=== PATIENT | female | born 1940 | race Caucasian/White ===

== ENCOUNTER 2018-04-29 13:02 | Inpatient (IN) | payer MEDICAID ==
[~2018-04-29] VITALS: Ht 157.5 cm; Wt 78.3 kg
[2018-04-29] MEDS ORDERED: SOD CHLORIDE 0.9% 780 ML IV ONE (13:30)
--- NOTE | 2018-04-29 13:50 | ERD ---
ER Documentation Chief Complaint Chief Complaint BIB FAMILY, CC: "HIGH BLOOD GLUCOSE" HPI 77-year-old female who presents with family member. The patient is an insulin- dependent diabetic and over the last several days blood sugars have been significantly elevated in the 600 range. She has been compliant with her medications. The family is also noted over the past 24-48 hours the patient has been unable to open her left eye and she is complaining of diplopia. The patient has been dizzy and has had several episodes of falls without head trauma or loss of consciousness. The patient states that she feels unsteady on her feet. During the patient's encounter translation services were utilized Language: Bulgarian Source: Family ROS All systems reviewed and are negative except as per history of present illness. Medications Home Meds Reported Medications Insulin Aspart* (Novolog Insulin Pen*) 100 Unit/Ml Soln, 26 UNIT SC BID PRN for LOW GLUCOSE, EA 04/29/18 Atorvastatin Calcium (Atorvastatin Calcium) 10 Mg Tablet, 10 MG PO QHS, #30 TAB 04/29/18 Pantoprazole* (Pantoprazole*) 20 Mg Tablet.dr, 20 MG PO AC BREAKFAST, TAB 04/29/18 Pregabalin* (Lyrica*) 150 Mg Capsule, 150 MG PO DAILY, CAP 04/29/18 Escitalopram Oxalate* (Escitalopram Oxalate*) 10 Mg Tablet, 10 MG PO DAILY, #30 TAB 04/29/18 Discontinued Reported Medications Pantoprazole* (Pantoprazole*) 40 Mg Tablet.dr, 40 MG PO AC BREAKFAST, TAB 04/29/18 Allergies Allergies: Coded Allergies: No Known Allergy (Unverified , 04/29/18) PMhx/Soc History of Surgery: Yes (OVARY SX) Anesthesia Reaction: No Hx Neurological Disorder: No Hx Respiratory Disorders: No Hx Cardiac Disorders: No Hx Psychiatric Problems: No Hx Miscellaneous Medical Probl: Yes (DM TYPE II) Hx Alcohol Use: No Hx Substance Use: No Hx Tobacco Use: No Smoking Status: Never smoker FmHx Family History: diabetes Physical Exam Vitals Vital Signs Date Temp Pulse Resp B/P (MAP) Pulse Ox O2 O2 Flow FiO2 Time Delivery Rate 04/29/18 78 24 163/78 99 Room Air 14:31 (106) 04/29/18 98.5 93 19 135/63 100 13:08 (87) Physical Exam General: Well developed, well nourished, no acute distress Head: Normocephalic, atraumatic. Eyes: Left cranial nerve III deficit as documented below ENT: Moist mucous membranes Neck: Supple, no lymphadenopathy Respiratory: Lungs clear bilaterally, no distress Cardiovascular: RRR, no murmurs, rubs, or gallops Abdominal: Soft, non-tender, non-distended, no peritoneal signs : Deferred MSK: No edema, no unilateral swelling, 5/5 strength Neurologic: Alert and oriented, moving all extremities, normal speech, the patient has evidence of a cranial nerve III deficit and palsy to the left eye. She has ptosis, downward and external resting position of the eye. Slightly dilated pupil. No pronator drift Skin: No rash Psych: Normal mood Result Diagram: 04/29/18 1400 04/29/18 1400 Results 24 hrs Laboratory Tests Test 04/29/18 13:30 04/29/18 13:54 04/29/18 14:00 Blood Gas Specimen Blood venous Source Arterial Blood Date 04/29/2018 1:55:59 PM Drawn Arterial Blood Gas VENOUS LINE Puncture Site Yunior Test N/A Venous Blood pH 7.365 Venous Blood pCO2 52.4 mmHG (Temp Corrected) Venous Blood pO2 29.2 mmHG (Temp Corrected) Venous Blood HCO3 29.3 mmol/L Venous Blood Oxygen 54.8 mmHG Saturation Venous Blood Base Excess 3.0 mmol/L Venous Blood Total 11.5 g/dl Hemoglobin Venous Blood 54.3 % Oxyhemoglobin Venous Blood 0.2 % Methemoglobin Carboxyhemoglobin 0.7 % Blood Gas Temperature 37.0 C Blood Gas Modality ROOM AIR FiO2 21.0 % Blood Gas Notified Whom Viral Blood Gas Notified Time 04/29/2018 2:01:33 PM Bedside Glucose 267 mg/dL White Blood Count 10.0 10^3/ul Red Blood Count 3.71 10^6/ul Hemoglobin 10.4 g/dl Hematocrit 31.6 % Mean Corpuscular Volume 85.2 fl Mean Corpuscular 28.0 pg Hemoglobin Mean Corpuscular 32.9 g/dl Hemoglobin Concent Red Cell Distribution 12.8 % Width Platelet Count 179 10^3/UL Mean Platelet Volume 12.5 fl Immature Granulocytes % 0.400 % Neutrophils % 48.1 % Lymphocytes % 39.0 % Monocytes % 10.1 % Eosinophils % 1.9 % Basophils % 0.5 % Nucleated Red Blood 0.0 /100WBC Cells % Immature Granulocytes # 0.040 10^3/ul Neutrophils # 4.8 10^3/ul Lymphocytes # 3.9 10^3/ul Monocytes # 1.0 10^3/ul Eosinophils # 0.2 10^3/ul Basophils # 0.1 10^3/ul Nucleated Red Blood 0.0 10^3/ul Cells # Prothrombin Time 12.0 Sec Prothrombin Time Ratio 0.9 INR International 0.88 Normalized Ratio Activated 24.1 Sec Partial Thromboplast Time Urine Color YELLOW Urine Clarity SLIGHTLY CLOUDY Urine pH 5.0 Urine Specific [place] 1.010 Urine Ketones NEGATIVE mg/dL Urine Nitrite NEGATIVE mg/dL Urine Bilirubin NEGATIVE mg/dL Urine Urobilinogen NEGATIVE mg/dL Urine Leukocyte Esterase 1+ Ac/ul Urine Microscopic RBC 2 /HPF Urine Microscopic WBC 15 /HPF Urine Squamous FEW /HPF Epithelial Cells Urine Bacteria FEW /HPF Urine Mucus FEW /HPF Urine Hemoglobin NEGATIVE mg/dL Urine Glucose 3+ mg/dL Urine Total Protein 2+ mg/dl Sodium Level 142 mmol/L Potassium Level 5.4 mmol/L Chloride Level 101 mmol/L Carbon Dioxide Level 31 mmol/L Anion Gap 10 Blood Urea Nitrogen 38 mg/dl Creatinine 2.42 mg/dl Est Glomerular Filtrat mL/min Rate mL/min Glucose Level 281 mg/dl Hemoglobin A1c 13.3 % Calcium Level 9.8 mg/dl Phosphorus Level 3.6 mg/dl Magnesium Level 2.0 mg/dl Total Bilirubin 0.0 mg/dl Direct Bilirubin 0.00 mg/dl Indirect Bilirubin 0.0 mg/dl Aspartate Amino 24 IU/L Transf (AST/SGOT) Alanine 14 IU/L Aminotransferase (ALT/SG PT) Alkaline Phosphatase 104 IU/L Troponin I < 0.012 ng/ml Total Protein 8.2 g/dl Albumin 4.0 g/dl Globulin 4.20 g/dl Albumin/Globulin Ratio 0.95 Triglycerides Level 205 mg/dl Cholesterol Level 116 mg/dl LDL Cholesterol, 48 mg/dl Calculated HDL Cholesterol 27 mg/dl Cholesterol/HDL Ratio 4.2 RATIO Urine Opiates Screen Negative Urine Barbiturates Negative Urine Amphetamines Negative Screen Urine Benzodiazepines Negative Screen Urine Cocaine Screen Negative Urine Cannabinoids Negative Current Medications Medications Dose Sig/Marcos Start Time Status Last (Trade) Ordered Route PRN Stop Time Admin Dose Reason Admin Sodium 780 ml @ ONCE ONCE 12/30/18 DC 04/29/18 Chloride 780 mls/hr IV 13:30 14:06 04/29/18 14:29 Aspirin 162 mg ONCE ONCE 04/29/18 04/29/18 (Aspirin) PO 15:30 15:21 04/29/18 15:31 Procedures/MDM EKG, MONITORS, & DIAGNOSTIC IMAGING: EKG: I reviewed and interpreted a 12-lead EKG. Rhythm: Normal sinus rhythm ST Changes: No contiguous ST segment elevations T waves: No contiguous T wave inversions Impression: [No evidence of acute cardiac ischemia] Chest x-ray: I reviewed and interpreted a 1 view of the chest Mediastinum: No enlargement Cardiac silhouette: No cardiomegaly Airspace: Clear lung razo bilaterally without evidence of pneumothorax Bones: No evidence of fracture CT brain: IMPRESSION: Atrophy. No intracranial hemorrhage, mass or evidence of acute transcortical infarct. Consider pre and post contrast MRI of the cerebellopontine angle to rule out acoustic neuroma if clinically indicated. LAB INTERPRETATION: * CBC shows no evidence of infection * Blood gas and chemistry profile showed no evidence of diabetic ketoacidosis. The patient has chronic renal insufficiency. Hyperglycemia with poorly controlled diabetes of an A1c of 13. Negative troponin. MEDICAL DECISION MAKING: The patient has 2 issues that may be related. The patient has hyperglycemia. Unclear etiology. The patient's cranial nerve deficit is concerning for central nervous system process such as stroke or mass. Hyper glycemia likely secondary to this. Regarding the patient's hyperglycemia she needs screening for diabetic ketoacidosis, fluid resuscitation and glucose control. Regarding the patient's cranial nerve III deficit the patient requires CT of the brain. Likely MRI. On the differential includes cavernous sinus thrombosis and MR, MRV is likely indicated on inpatient basis. Symptoms have been present for at least 24 hours and the patient is not a candidate for TPA or endovascular intervention. ER COURSE: * The patient remained stable. Aspirin provided after negative CT brain. * Fluids provided. No indication for treatment of DKA. The patient does not require subcutaneous or IV insulin at this time. CONSULTATION: [None] DISPOSITION PLAN: Accepting care team and consultations: I discussed the current laboratory data, diagnostic imaging and emergency care provided. Admitting team: Dr. 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
[2018-04-29] MEDS ORDERED: ESCI10TA48 PO (14:31)
[2018-04-29] MEDS ORDERED: PREG150C PO (14:32)
[2018-04-29] MEDS ORDERED: PANT40TA4 PO (14:35)
[2018-04-29] MEDS ORDERED: PANT20TA3 PO (14:36)
[2018-04-29] MEDS ORDERED: ATOR10TA65 PO (14:36)
[2018-04-29] MEDS ORDERED: NOVO3I SC (14:38)
[2018-04-29] MEDS ORDERED: ASPIRIN 81 MG TAB PO ONE (15:30)
[2018-04-29] MEDS ORDERED: ONDANSETRON 4 MG INJ IV PRN (16:00)
[2018-04-29] MEDS ORDERED: GLUCAGON 1 MG INJ IM PRN (16:00)
[2018-04-29] MEDS ORDERED: DEXTROSE 50% 50 ML SYRINGE IV PRN ×2 (16:00)
[2018-04-29] MEDS ORDERED: GLUCOSE GEL 15 GRAM TUBE PO PRN ×2 (16:00)
[2018-04-29] MEDS ORDERED: GLUCOSE GEL 15 GRAM TUBE BUCCAL PRN (16:00)
[2018-04-29] MEDS ORDERED: ACETAMINOPHEN 325 MG TAB PO PRN (16:00)
--- NOTE | 2018-04-29 16:12 | HP ---
Date/Time of Note Date/Time of Note DATE: 04/29/18 TIME: 16:04 Assessment/Plan VTE Prophylaxis Pharmacological prophylaxis: heparin Lines/Catheters IV Catheter Type (from Nrs): Saline Lock Assessment/Plan Hospital Course 77 yo female with h/o DMII who presents wtih ptosis of L eye over past two days - Unilateral nature suggests peripheral 3rd cranial nerve palsy - MRI pending - Neurology consult DMII - Uncontrolled - Says she takes 20 lispro BID as outpatient. 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 indicated Dispo pending clincal course Result Diagram: 04/29/18 1400 04/29/18 1400 Results 24hrs Laboratory Tests Test 04/29/18 13:30 04/29/18 13:54 04/29/18 14:00 Blood Gas Specimen Blood venous Source Arterial Blood Date 04/29/2018 1:55:59 PM Drawn Arterial Blood Gas VENOUS LINE Puncture Site Yunior Test N/A Venous Blood pH 7.365 Venous Blood pCO2 52.4 H (Temp Corrected) Venous Blood pO2 29.2 H (Temp Corrected) Venous Blood HCO3 29.3 H Venous Blood Oxygen 54.8 L Saturation Venous Blood Base 3.0 Excess Venous Blood Total 11.5 Hemoglobin Venous Blood 54.3 Oxyhemoglobin Venous Blood 0.2 Methemoglobin Carboxyhemoglobin 0.7 Blood Gas Temperature 37.0 Blood Gas Modality ROOM AIR FiO2 21.0 Blood Gas Notified Viral Rivas Blood Gas Notified 04/29/2018 2:01:33 PM Time Bedside Glucose 267 H White Blood Count 10.0 Red Blood Count 3.71 L Hemoglobin 10.4 L Hematocrit 31.6 L Mean Corpuscular 85.2 Volume Mean Corpuscular 28.0 L Hemoglobin Mean Corpuscular 32.9 Hemoglobin Concent Red Cell Distribution 12.8 Width Platelet Count 179 Mean Platelet Volume 12.5 H Immature Granulocytes 0.400 % Neutrophils % 48.1 Lymphocytes % 39.0 Monocytes % 10.1 Eosinophils % 1.9 Basophils % 0.5 Nucleated Red Blood 0.0 Cells % Immature Granulocytes 0.040 H # Neutrophils # 4.8 Lymphocytes # 3.9 H Monocytes # 1.0 H Eosinophils # 0.2 Basophils # 0.1 Nucleated Red Blood 0.0 Cells # Prothrombin Time 12.0 Prothrombin Time 0.9 Ratio INR International 0.88 Normalized Ratio Activated 24.1 Partial Thromboplast Time Urine Color YELLOW Urine Clarity SLIGHTLY CLOUDY A Urine pH 5.0 Urine Specific 1.010 [place] Urine Ketones NEGATIVE Urine Nitrite NEGATIVE Urine Bilirubin NEGATIVE Urine Urobilinogen NEGATIVE Urine Leukocyte 1+ H Esterase Urine Microscopic RBC 2 Urine Microscopic WBC 15 H Urine Squamous FEW Epithelial Cells Urine Bacteria FEW A Urine Mucus FEW A Urine Hemoglobin NEGATIVE Urine Glucose 3+ H Urine Total Protein 2+ H Sodium Level 142 Potassium Level 5.4 H Chloride Level 101 Carbon Dioxide Level 31 Anion Gap 10 Blood Urea Nitrogen 38 H Creatinine 2.42 H Est Glomerular Filtrat Rate mL/min Glucose Level 281 H Hemoglobin A1c 13.3 H Calcium Level 9.8 Phosphorus Level 3.6 Magnesium Level 2.0 Total Bilirubin 0.0 L Direct Bilirubin 0.00 Indirect Bilirubin 0.0 Aspartate Amino 24 Transf (AST/SGOT) Alanine 14 Aminotransferase (ALT /SGPT) Alkaline Phosphatase 104 Troponin I < 0.012 Total Protein 8.2 H Albumin 4.0 Globulin 4.20 H Albumin/Globulin 0.95 Ratio Triglycerides Level 205 H Cholesterol Level 116 LDL Cholesterol, 48 Calculated HDL Cholesterol 27 L Cholesterol/HDL Ratio 4.2 Urine Opiates Screen Negative Urine Barbiturates Negative Urine Amphetamines Negative Screen Urine Benzodiazepines Negative Screen Urine Cocaine Screen Negative Urine Cannabinoids Negative HPI/ROS Admit Date/Time Admit Date/Time Hx of Present Illness 77 yo female with uncontrolled DMII who presents with ptosis Patient in [facility] [place] until two days ago. Developed pain in neck and over lateral face/head. Then developed ptosis of L eye which has persisted. Says vision is blurry but seems to be related to inability to open eye well. No peripheral symptoms of weakenss or numbness, etc. No recent illness. PMH/Family/Social Past Medical History Medical History: diabetes Medications Current Medications Ondansetron HCl (Zofran Inj) 4 mg ER BRIDGE PRN IV NAUSEA AND/OR VOMITING; Start 04/29/18 at 16:00; Stop 04/30/18 at 15:59 Acetaminophen (Tylenol Tab) 650 mg ER BRIDGE PRN PO MILD PAIN(1-3)OR ELEVATED TEMP; Start 04/29/18 at 16:00; Stop 04/30/18 at 15:59 Insulin Glargine (Lantus) 20 units DAILY@2000 SC ; Start 04/29/18 at 20:00 Insulin Aspart (Novolog Insulin Pen) 5 unit WITH MEALS SC ; Start 04/29/18 at 18:00 Insulin Aspart (Novolog Insulin Pen) NOVOLOG *MODERATE* ALGORITHM WITH MEALS BEDTIME SC ; Start 04/29/18 at 18:00 Atorvastatin Calcium (Lipitor) 10 mg QHS PO ; Start 04/29/18 at 21:00 Escitalopram Oxalate (Lexapro) 10 mg DAILY PO ; Start 04/30/18 at 09:00 Pantoprazole Sodium (Protonix) 20 mg AC BREAKFAST PO ; Start 04/30/18 at 07:00 Miscellaneous Information 1 ea NOTE XX ; Start 04/29/18 at 16:00 Glucose (Glutose) 15 gm Q15M PRN PO DECREASED GLUCOSE; Start 04/29/18 at 16:00 Glucose (Glutose) 22.5 gm Q15M PRN PO DECREASED GLUCOSE; Start 04/29/18 at 16:00 Dextrose (D50w Syringe) 25 ml Q15M PRN IV DECREASED GLUCOSE; Start 04/29/18 at 16:00 Dextrose (D50w Syringe) 50 ml Q15M PRN IV DECREASED GLUCOSE; Start 04/29/18 at 16:00 Glucagon (Glucagen) 1 mg Q15M PRN IM DECREASED GLUCOSE; Start 04/29/18 at 16:00 Glucose (Glutose) 15 gm Q15M PRN BUCCAL DECREASED GLUCOSE; Start 04/29/18 at 16:00 Coded Allergies: No Known Allergy (Unverified , 04/29/18) Past Surgical History Past Surgical Hx: no surgical history Family History Significant Family History: no pertinent family hx Social History Alcohol Use: sober Smoking Status: Never smoker Drug Use: none Exam/Review of Systems Vital Signs Vitals Vital Signs Date Temp Pulse Resp B/P (MAP) Pulse Ox O2 O2 Flow FiO2 Time Delivery Rate 04/29/18 78 24 163/78 99 Room Air 14:31 (106) 04/29/18 98.5 13:08 Exam Exam Well appearing elderly female resitng in NAD Clear ptosis of L eye. Hyperestehsia of V2 distribution on L EOMI intact. Face otherwise symmetrical Peripheral senstiaon in tact. Strenght in tact RRR CTAB soft nt nd ext without eema YULISA SOLARES MD Apr 29, 2018 16:12
[2018-04-29] MEDS ORDERED: NACL 0.9% 3 ML SYG IV SCH (16:30)
[2018-04-29] MEDS ORDERED: HYDROCODONE/APAP (5/325) TAB PO PRN (16:30)
--- NOTE | 2018-04-29 17:35 | NUR ---
PT ARRIVED FROM ED AT THIS TIME;PT AWAKE,ALERT ORIENTED X4;SEE ADMISSION ASSESSMENT
[2018-04-29 17:41] VITALS: PULSE 74
[2018-04-29 17:44] VITALS: BP 179/83; PULSE 70; RESP 18
[2018-04-29 18:25] VITALS: Ht 157.5 cm; Wt 78.3 kg
[2018-04-29] MEDS: INSULIN ASPART [NOVOLOG] 3 ML PEN SC SCH ×3 (18:48→20:46)
[2018-04-29 20:00] VITALS: PULSE 76
[2018-04-29] MEDS ORDERED: INSULIN GLARGINE [LANTus] (100 UNITS/ML) SYG SC SCH (20:00)
[2018-04-29 20:06] VITALS: BP 139/68; PULSE 75; RESP 18
[2018-04-29] MEDS: ATORVASTATIN 10 MG TAB PO SCH (20:39)
[2018-04-30] VITALS (13 sets, daily range): BP systolic 123–174; BP diastolic 65–81; PULSE 68–87; RESP 18–19
--- NOTE | 2018-04-30 06:40 | NUR ---
END OF THE SHIFT:PT. IS AA,O X 3.NO DISTRESS/DISCOMFORT NOTED THROUGHOUT THE SHIFT.VS-WNL.MRI OF HEAD AND NEURO CONSULT ARE IN PENDING.RELATIVES AT THE BEDSIDE.CONTINUE TO FOLLOW CURRENT PLAN OF CARE.
[2018-04-30] MEDS: ESCITALOPRAM 10 MG TAB PO SCH (08:06)
[2018-04-30] MEDS: PANTOPRAZOLE SODIUM 20 MG TABEC PO SCH (08:07)
[2018-04-30] MEDS: INSULIN ASPART [NOVOLOG] 3 ML PEN SC SCH ×7 (08:16→21:57)
[2018-04-30] MEDS: ENOXAPARIN 30 MG/0.3 ML SYG SC SCH (08:31)
--- NOTE | 2018-04-30 09:44 | NUR ---
Bedside Clinical Swallow evaluation completed: Brief Hx: Ms. Templeton is a 77-year-old female who presents with family member. The patient is an insulin-dependent diabetic and over the last several days blood sugars have been significantly elevated in the 600 range. She has been compliant with her medications. The family is also noted over the past 24-48 hours the patient has been unable to open her left eye and she is complaining of diplopia. The patient has been dizzy and has had several episodes of falls without head trauma or loss of consciousness. The patient states that she feels unsteady on her feet. Vitals; temp; 98; RR: 18-20; SPO2: 96% on RA Labs: WBC: 7.8; Hgb/Hct: 9.7L/29.2L; BUN: 30H; Cr level: 1.97 Urine total P: 2+H PLOF: regular/thin Current: regular/thin Subjective assessment of cognition specific to swallow safety: Awake, alert, oriented x4, following commands. Oral mechanism examination completed: Face is symmetrical without any reduced sensation bilaterally, lips, tongue and soft palate are symmetrical, with reduced L eye opening s/p Cnii palsy, and with 5+/5 tongue strength, dentition noted. P.O trials consisting of the following: thin liquids (cup/straw), puree, soft and hard solids. Pt was independent with consumption of the p.o trials. Oral phase of swallow: Oral phase of swallow was wfl. Oral motor strength/coordination was wfl. No anterior oral leakage or residue in the oral cavity after the swallow. Oral prep, transit and control was wfl. Pharyngeal phase of swallow: Pharyngeal phase of swallow was wfl. Trigger of swallow was timely. Hyolaryngeal excursion and elevation. No s/s of aspiration or penetration during trials. Vocal quality was clear across p.o trials. Coordination of breath w/ swallow safety was adequate. Impression: Functional oropharyngeal swallow. Recommendation: 1. continue with regular diet and thin liquids 2. safe to administer whole medication with liquids 3. ongoing swallow assessment.
--- NOTE | 2018-04-30 12:05 | CONS ---
Assessment/Plan Assessment/Plan Hospital Course A: 77 yo F with hx of uncontrolled DM who p/w L upper lid ptosis, for which neurology is consulted. Perhaps an isolated ptosis... A focal PULP MAKER process is less likely, though, not yet excluded. CTH is unrevealing. P: Add MRI orbit w/ and w/out contrast for further characterization Await MRI brain for further characterization Cont BP, blood sugar and other management per primary Will follow clinically Result Diagram: 04/30/18 0444 04/30/18 0444 Results 24hrs Laboratory Tests Test 04/29/18 13:30 04/29/18 13:54 04/29/18 14:00 04/29/18 17:57 Blood Gas Blood venous Specimen Source Arterial Blood 04/29/2018 1:55 Date Drawn :59 PM Arterial Blood VENOUS LINE Gas Puncture Site Yunior Test N/A Venous Blood pH 7.365 Venous Blood 52.4 H pCO2 (Temp Corrected ) Venous Blood 29.2 H pO2 (Temp Corrected ) Venous Blood 29.3 H HCO3 Venous Blood 54.8 L Oxygen Saturation Venous Blood 3.0 Base Excess Venous Blood 11.5 Total Hemoglobin Venous Blood 54.3 Oxyhemoglobin Venous Blood 0.2 Methemoglobin Carboxyhemoglob 0.7 in Blood Gas 37.0 Temperature Blood Gas ROOM AIR Modality FiO2 21.0 Blood Gas M.D. Notified Whom Blood Gas 04/29/2018 2:01 Notified Time :33 PM Bedside Glucose 267 H 198 White Blood 10.0 Count Red Blood Count 3.71 L Hemoglobin 10.4 L Hematocrit 31.6 L Mean 85.2 Corpuscular Volume Mean 28.0 L Corpuscular Hemoglobin Mean 32.9 Corpuscular Hemoglobin Conc ent Red Cell 12.8 Distribution Width Platelet Count 179 Mean Platelet 12.5 H Volume Immature 0.400 Granulocytes % Neutrophils % 48.1 Lymphocytes % 39.0 Monocytes % 10.1 Eosinophils % 1.9 Basophils % 0.5 Nucleated Red 0.0 Blood Cells % Immature 0.040 H Granulocytes # Neutrophils # 4.8 Lymphocytes # 3.9 H Monocytes # 1.0 H Eosinophils # 0.2 Basophils # 0.1 Nucleated Red 0.0 Blood Cells # Prothrombin 12.0 Time Prothrombin 0.9 Time Ratio INR 0.88 International Normalized Rati o Activated 24.1 Partial Thrombo plast Time Urine Color YELLOW Urine Clarity SLIGHTLY CLOUD Y A Urine pH 5.0 Urine Specific 1.010 [place] Urine Ketones NEGATIVE Urine Nitrite NEGATIVE Urine Bilirubin NEGATIVE Urine NEGATIVE Urobilinogen Urine Leukocyte 1+ H Esterase Urine 2 Microscopic RBC Urine 15 H Microscopic WBC Urine Squamous FEW Epithelial Cell s Urine Bacteria FEW A Urine Mucus FEW A Urine NEGATIVE Hemoglobin Urine Glucose 3+ H Urine Total 2+ H Protein Sodium Level 142 Potassium Level 5.4 H Chloride Level 101 Carbon Dioxide 31 Level Anion Gap 10 Blood Urea 38 H Nitrogen Creatinine 2.42 H Est Glomerular Filtrat Rate mL/min Glucose Level 281 H Hemoglobin A1c 13.3 H Calcium Level 9.8 Phosphorus 3.6 Level Magnesium Level 2.0 Total Bilirubin 0.0 L Direct 0.00 Bilirubin Indirect 0.0 Bilirubin Aspartate Amino 24 Transf (AST/SGO T) Alanine 14 Aminotransferas e (ALT/SGPT) Alkaline 104 Phosphatase Troponin I < 0.012 Total Protein 8.2 H Albumin 4.0 Globulin 4.20 H Albumin/Globuli 0.95 n Ratio Triglycerides 205 H Level Cholesterol 116 Level LDL 48 Cholesterol, Calculated HDL Cholesterol 27 L Cholesterol/HDL 4.2 Ratio Urine Opiates Negative Screen Urine Negative Barbiturates Urine Negative Amphetamines Screen Urine Negative Benzodiazepines Screen Urine Cocaine Negative Screen Urine Negative Cannabinoids Test 04/29/18 20:36 04/30/18 03:35 04/30/18 04:44 04/30/18 08:05 Bedside Glucose 232 H 310 H Urine Random 36.51 Creatinine Urine Random 36 Sodium White Blood 7.8 # Count Red Blood Count 3.46 L Hemoglobin 9.7 L Hematocrit 29.2 L Mean 84.4 Corpuscular Volume Mean 28.0 L Corpuscular Hemoglobin Mean 33.2 Corpuscular Hemoglobin Conc ent Red Cell 13.0 Distribution Width Platelet Count 165 Mean Platelet 13.2 H Volume Immature 0.300 Granulocytes % Neutrophils % 49.1 Lymphocytes % 36.9 Monocytes % 10.7 Eosinophils % 2.4 Basophils % 0.6 Nucleated Red 0.0 Blood Cells % Immature 0.020 Granulocytes # Neutrophils # 3.8 Lymphocytes # 2.9 Monocytes # 0.8 Eosinophils # 0.2 Basophils # 0.1 Nucleated Red 0.0 Blood Cells # Sodium Level 138 Potassium Level 4.6 Chloride Level 104 Carbon Dioxide 28 Level Anion Gap 6 Blood Urea 30 H Nitrogen Creatinine 1.97 H Est Glomerular Filtrat Rate mL/min Glucose Level 322 H Hemoglobin A1c 13.4 H Calcium Level 9.3 Iron Level 66 Total Iron 253 Binding Capacity Percent Iron 26 Saturation Ferritin 150.0 Total Bilirubin 0.0 L Direct 0.00 Bilirubin Indirect 0.0 Bilirubin Aspartate Amino 24 Transf (AST/SGO T) Alanine 13 Aminotransferas e (ALT/SGPT) Alkaline 91 Phosphatase Total Protein 7.0 # Albumin 3.3 Globulin 3.70 H Albumin/Globuli 0.89 n Ratio Test 04/30/18 11:43 Bedside Glucose 283 H Consultation Date/Type/Reason Admit Date/Time Type of Consult Neurology Reason for Consultation CN III palsy Requesting Provider: YULISA SOLARES MD Date/Time of Note DATE: 04/30/18 TIME: 12:05 Hx of Present Illness This is a 77 yo F with hx of uncontrolled DM and other comorbidities who presented to the ED with L eye ptosis History was obtained from pt as well as chart review. The pt endorses L eye ptosis, but currently denies blurred vision, diplopia, and other visual changes. Denies headache, weakness, dizziness, lightheadedness, lethargy, confusion, numbness/tingling, speech changes. It is additionally elsewhere noted: 77 yo female with uncontrolled DMII who presents with ptosis Patient in usoh until two days ago. Developed pain in neck and over lateral face/head. Then developed ptosis of L eye which has persisted. Says vision is blurry but seems to be related to inability to open eye well. No peripheral symptoms of weakenss or numbness, etc. No recent illness. negative unless noted otherwise in HPI Exam/Review of Systems Vital Signs Vitals Vital Signs Date Temp Pulse Resp B/P (MAP) Pulse Ox O2 O2 Flow FiO2 Time Delivery Rate 04/30/18 98.0 72 18 173/80 99 Room Air 11:09 (111) Intake and Output 04/29/18 04/29/18 04/30/18 1515:00 23:00 07:00 IntakeIntake Total 500 ml OutputOutput Total 700 ml BalanceBalance -200 ml Exam PE: Gen Appearance: No Apparent Distress HEENT: Normocephalic Cardiovascular: Regular rate Lungs: Clear bilaterally Abdomen: Soft Extremities: Dry NE: The patient was alert and oriented.. Language was normal. Fund of knowledge was normal. Pupils were equal and reactive to light. There was no afferent pupillary defect. Visual razo were normal. Funduscopic examination was limited Extra-ocular movements were full. L upper lid ptosis was present. There was no nystagmus. Facial sensation was normal. Face was symmetric with normal strength. Hearing was intact. Palate movements were normal. Neck strength was normal. There was normal tongue bulk and speed of movement. Tone was normal. Muscle bulk was normal. I did not see fasciculations. Arms and legs were strong to confrontation. Vibration sensation was normal. Temperature and pinprick sensation was normal. Rapid alternating movements were normal. There was no dysmetria. There was no intention tremor. Gait was deferred due to bedrest. Arm and leg reflexes were 2+ and symmetric. Foster's sign was absent. Plantar responses were flexor. Medications Medications Current Medications Insulin Glargine (Lantus) 20 units DAILY@2000 SC Last administered on 04/29/18at 20:46; Admin Dose 20 UNITS; Start 04/29/18 at 20:00 Insulin Aspart (Novolog Insulin Pen) NOVOLOG *MODERATE* ALGORITHM WITH MEALS BEDTIME SC Last administered on 04/30/18at 11:48; Admin Dose 8 UNIT; Start 04/29/18 at 18:00 Atorvastatin Calcium (Lipitor) 10 mg QHS PO Last administered on 04/29/18at 20:39; Admin Dose 10 MG; Start 04/29/18 at 21:00 Escitalopram Oxalate (Lexapro) 10 mg DAILY PO Last administered on 04/30/18at 08:06; Admin Dose 10 MG; Start 04/30/18 at 09:00 Pantoprazole Sodium (Protonix) 20 mg AC BREAKFAST PO Last administered on 04/30/18at 08:07; Admin Dose 20 MG; Start 04/30/18 at 07:00 Miscellaneous Information 1 ea NOTE XX ; Start 04/29/18 at 16:00 Glucose (Glutose) 15 gm Q15M PRN PO DECREASED GLUCOSE; Start 04/29/18 at 16:00 Glucose (Glutose) 22.5 gm Q15M PRN PO DECREASED GLUCOSE; Start 04/29/18 at 16:00 Dextrose (D50w Syringe) 25 ml Q15M PRN IV DECREASED GLUCOSE; Start 04/29/18 at 16:00 Dextrose (D50w Syringe) 50 ml Q15M PRN IV DECREASED GLUCOSE; Start 04/29/18 at 16:00 Glucagon (Glucagen) 1 mg Q15M PRN IM DECREASED GLUCOSE; Start 04/29/18 at 16:00 Glucose (Glutose) 15 gm Q15M PRN BUCCAL DECREASED GLUCOSE; Start 04/29/18 at 16:00 IV Flush (NS 3 ml) 3 ml PER PROTOCOL IV ; Start 04/29/18 at 16:30 Acetaminophen/ Hydrocodone Bitart ([place] (5/325)) 2 tab Q6H PRN PO SEVERE PAIN LEVEL 7-10; Start 04/29/18 at 16:30 Enoxaparin Sodium (Lovenox) 30 mg DAILY SC Last administered on 04/30/18at 08:31; Admin Dose 30 MG; Start 04/30/18 at 09:00 Insulin Aspart (Novolog Insulin Pen) 10 unit WITH MEALS SC ; Start 04/30/18 at 18:00; Status UNV Past Medical History reviewed Medical History: diabetes Medications Current Medications Insulin Glargine (Lantus) 20 units DAILY@2000 SC Last administered on 04/29/18at 20:46; Admin Dose 20 UNITS; Start 04/29/18 at 20:00 Insulin Aspart (Novolog Insulin Pen) NOVOLOG *MODERATE* ALGORITHM WITH MEALS BEDTIME SC Last administered on 04/30/18at 11:48; Admin Dose 8 UNIT; Start at 18:00 Atorvastatin Calcium (Lipitor) 10 mg QHS PO Last administered on 04/29/18at 20:39; Admin Dose 10 MG; Start 04/29/18 at 21:00 Escitalopram Oxalate (Lexapro) 10 mg DAILY PO Last administered on 04/30/18at 08:06; Admin Dose 10 MG; Start 04/30/18 at 09:00 Pantoprazole Sodium (Protonix) 20 mg AC BREAKFAST PO Last administered on 04/30/18at 08:07; Admin Dose 20 MG; Start 04/30/18 at 07:00 Miscellaneous Information 1 ea NOTE XX ; Start 04/29/18 at 16:00 Glucose (Glutose) 15 gm Q15M PRN PO DECREASED GLUCOSE; Start 04/29/18 at 16:00 Glucose (Glutose) 22.5 gm Q15M PRN PO DECREASED GLUCOSE; Start 04/29/18 at 16:00 Dextrose (D50w Syringe) 25 ml Q15M PRN IV DECREASED GLUCOSE; Start 04/29/18 at 16:00 Dextrose (D50w Syringe) 50 ml Q15M PRN IV DECREASED GLUCOSE; Start 04/29/18 at 16:00 Glucagon (Glucagen) 1 mg Q15M PRN IM DECREASED GLUCOSE; Start 04/29/18 at 16:00 Glucose (Glutose) 15 gm Q15M PRN BUCCAL DECREASED GLUCOSE; Start 04/29/18 at 16:00 IV Flush (NS 3 ml) 3 ml PER PROTOCOL IV ; Start 04/29/18 at 16:30 Acetaminophen/ Hydrocodone Bitart ([place] (5/325)) 2 tab Q6H PRN PO SEVERE PAIN LEVEL 7-10; Start 04/29/18 at 16:30 Enoxaparin Sodium (Lovenox) 30 mg DAILY SC Last administered on 04/30/18at 08:31; Admin Dose 30 MG; Start 04/30/18 at 09:00 Insulin Aspart (Novolog Insulin Pen) 10 unit WITH MEALS SC ; Start 04/30/18 at 18:00; Status UNV Allergies: Coded Allergies: No Known Allergy (Unverified , 04/30/18) Past Surgical History reviewed Past Surgical Hx: no surgical history Social History reviewed Alcohol Use: sober Smoking Status: Former smoker Drug Use: none MARIO BROWN NP Apr 30, 2018 12:05 SHELBY JUDGE Apr 30, 2018 20:40
[2018-04-30] MEDS: hydrALAzine 20 MG INJ IV PRN ×2 (12:53→21:13)
--- NOTE | 2018-04-30 17:14 | PN ---
Date/Time of Note Date/Time of Note DATE: 04/30/18 TIME: 17:10 Assessment/Plan VTE Prophylaxis Risk score (from Ns)>0 risk: 4 SCD applied (from Ns): Yes Pharmacological prophylaxis: NA/contraindicated Pharm contraindication: low risk/ambulating Lines/Catheters IV Catheter Type (from Nrsg): Peripheral IV Assessment/Plan Assessment/Plan 1. 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 Diabetes-uncontrolled A1c severely elevated at 13.4 Patient and family advised on improved outpatient management Increase schedule insulin dose Lifestyle changes advised Prophylaxis: SCDs DC planning: Anticipate DC home tomorrow Result Diagram: 04/30/18 0444 04/30/18 0444 Results 24hrs Laboratory Tests Test 04/29/18 17:57 04/29/18 20:36 04/30/18 03:35 04/30/18 04:44 Bedside Glucose 198 232 H Urine Random 36.51 Creatinine Urine Random 36 Sodium White Blood 7.8 # Count Red Blood Count 3.46 L Hemoglobin 9.7 L Hematocrit 29.2 L Mean Corpuscular 84.4 Volume Mean Corpuscular 28.0 L Hemoglobin Mean Corpuscular 33.2 Hemoglobin Cheryle nt Red Cell 13.0 Distribution Width Platelet Count 165 Mean Platelet 13.2 H Volume Immature 0.300 Granulocytes % Neutrophils % 49.1 Lymphocytes % 36.9 Monocytes % 10.7 Eosinophils % 2.4 Basophils % 0.6 Nucleated Red 0.0 Blood Cells % Immature 0.020 Granulocytes # Neutrophils # 3.8 Lymphocytes # 2.9 Monocytes # 0.8 Eosinophils # 0.2 Basophils # 0.1 Nucleated Red 0.0 Blood Cells # Sodium Level 138 Potassium Level 4.6 Chloride Level 104 Carbon Dioxide 28 Level Anion Gap 6 Blood Urea 30 H Nitrogen Creatinine 1.97 H Est Glomerular Filtrat Rate mL/min Glucose Level 322 H Hemoglobin A1c 13.4 H Calcium Level 9.3 Iron Level 66 Total Iron 253 Binding Capacity Percent Iron 26 Saturation Ferritin 150.0 Total Bilirubin 0.0 L Direct Bilirubin 0.00 Indirect 0.0 Bilirubin Aspartate Amino 24 Transf (AST/SGOT ) Alanine 13 Aminotransferase (ALT/SGPT) Alkaline 91 Phosphatase Total Protein 7.0 # Albumin 3.3 Globulin 3.70 H Albumin/Globulin 0.89 Ratio Test 04/30/18 08:05 04/30/18 11:43 Bedside Glucose 310 H 283 H Subjective 24 Hr Interval Summary Constitutional: no complaints Exam/Review of Systems Vital Signs Vitals Vital Signs Date Temp Pulse Resp B/P (MAP) Pulse Ox O2 O2 Flow FiO2 Time Delivery Rate 04/30/18 98.0 87 18 147/70 99 Room Air 16:52 (95) Intake and Output 04/29/18 04/29/18 04/30/18 1515:00 23:00 07:00 IntakeIntake Total 500 ml OutputOutput Total 700 ml BalanceBalance -200 ml Exam Constitutional: alert, oriented Eyes: other (Ptosis); No EOMI Respiratory: clear to auscultation Cardiovascular: regular rate and rhythm Gastrointestinal: soft; No distended Musculoskeletal: nl extremities to inspection Medications Medications Current Medications Insulin Glargine (Lantus) 20 units DAILY@2000 SC Last administered on 04/29/18at 20:46; Admin Dose 20 UNITS; Start 04/29/18 at 20:00 Insulin Aspart (Novolog Insulin Pen) NOVOLOG *MODERATE* ALGORITHM WITH MEALS BEDTIME SC Last administered on 04/30/18at 11:48; Admin Dose 8 UNIT; Start 04/29/18 at 18:00 Atorvastatin Calcium (Lipitor) 10 mg QHS PO Last administered on 04/29/18at 20:39; Admin Dose 10 MG; Start 04/29/18 at 21:00 Escitalopram Oxalate (Lexapro) 10 mg DAILY PO Last administered on 04/30/18at 08:06; Admin Dose 10 MG; Start 04/30/18 at 09:00 Pantoprazole Sodium (Protonix) 20 mg AC BREAKFAST PO Last administered on 04/30/18at 08:07; Admin Dose 20 MG; Start 04/30/18 at 07:00 Miscellaneous Information 1 ea NOTE XX ; Start 04/29/18 at 16:00 Glucose (Glutose) 15 gm Q15M PRN PO DECREASED GLUCOSE; Start 04/29/18 at 16:00 Glucose (Glutose) 22.5 gm Q15M PRN PO DECREASED GLUCOSE; Start 04/29/18 at 16:00 Dextrose (D50w Syringe) 25 ml Q15M PRN IV DECREASED GLUCOSE; Start 04/29/18 at 16:00 Dextrose (D50w Syringe) 50 ml Q15M PRN IV DECREASED GLUCOSE; Start 04/29/18 at 16:00 Glucagon (Glucagen) 1 mg Q15M PRN IM DECREASED GLUCOSE; Start 04/29/18 at 16:00 Glucose (Glutose) 15 gm Q15M PRN BUCCAL DECREASED GLUCOSE; Start 04/29/18 at 1 6:00 IV Flush (NS 3 ml) 3 ml PER PROTOCOL IV ; Start 04/29/18 at 16:30 Acetaminophen/ Hydrocodone Bitart ([place] (5/325)) 2 tab Q6H PRN PO SEVERE PAIN LEVEL 7-10; Start 04/29/18 at 16:30 Enoxaparin Sodium (Lovenox) 30 mg DAILY SC Last administered on 04/30/18at 08:31; Admin Dose 30 MG; Start 04/30/18 at 09:00 Insulin Aspart (Novolog Insulin Pen) 10 unit WITH MEALS SC ; Start 04/30/18 at 18:00 Hydralazine HCl (Apresoline) 10 mg Q4H PRN IV SBP>170 Last administered on 04/30/18at 12:53; Admin Dose 10 MG; Start 04/30/18 at 12:30 TIMI BURT Apr 30, 2018 17:14
--- NOTE | 2018-04-30 17:52 | NUR ---
LAURIES pt is alert and orientedx3-4, room air, eating dinner family at bedside blood glucose on the high side, being monitored, insulin given BP is now WNL. hourly rounding done Addendum: 04/30/18 at 1927 by TIFFANIE SERRANO RN Notified Dr. Durán in the AM regarding consistent high BP and that the pt does not usually take BP meds ordered hydralazine IV PRN
[2018-04-30] MEDS ORDERED: INSULIN GLARGINE [LANTus] (100 UNITS/ML) SYG SC SCH (20:00)
[2018-04-30] MEDS: ATORVASTATIN 10 MG TAB PO SCH (21:12)
[2018-04-30] MEDS ORDERED: INSULIN ASPART [NOVOLOG] 3 ML PEN SC ONE (22:00)
[2018-05-01] VITALS: BP 122/60; PULSE 78; PULSE 80; RESP 18
[2018-05-01 04:00] VITALS: BP 112/58; PULSE 80; PULSE 85; RESP 18
[2018-05-01] MEDS: PANTOPRAZOLE SODIUM 20 MG TABEC PO SCH (05:55)
--- NOTE | 2018-05-01 07:04 | NUR ---
Pt. had a quiet night, family at the bedside all the time who helped pt. go to bathroom,SR, BP 181/89 at beginning of shift but was controlled by IV Hydralazine; BS 315 at 2100, texted Dr. Betts who ordered a total of 8 units Novolog SQ to be given to pt,.. carried out.
[2018-05-01 07:50] VITALS: BP 97/60; PULSE 79; RESP 18
[2018-05-01 08:00] VITALS: PULSE 71
[2018-05-01] MEDS: INSULIN ASPART [NOVOLOG] 3 ML PEN SC SCH ×4 (08:00→12:16)
[2018-05-01] MEDS: ESCITALOPRAM 10 MG TAB PO SCH (08:05)
[2018-05-01] MEDS: ENOXAPARIN 30 MG/0.3 ML SYG SC SCH (08:11)
[2018-05-01] MEDS ORDERED: NOVO3I SC (08:58)
[2018-05-01] MEDS ORDERED: LANT3I SC (08:58)
--- NOTE | 2018-05-01 08:58 | PDOCDIS ---
Discharge Instructions CONDITION [id number] Patient Condition: [id number] Good HOME CARE INSTRUCTIONS: [id number] Special Diet: [id number] carb controlled ACTIVITY: [id number] Activity Restrictions: [id number] No Restrictions FOLLOW UP/APPOINTMENTS Follow-up Plan FOLLOW UP WITH YOUR PCP IN 1-2 WEEKS TIMI BURT May 01, 2018 08:58
--- NOTE | 2018-05-01 10:47 | DS ---
Date/Time of Note Date/Time of Note DATE: 05/01/18 TIME: 10:45 Discharge Summary Admission/Discharge Info Admit Date/Time Apr 29, 2018 at 15:33 Discharge Date/Time May 01, 2018 Discharge Diagnosis 1. 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 Diabetes-uncontrolled A1c severely elevated at 13.4 Patient and family advised on improved outpatient management DC with Lantus and NovoLog Lifestyle changes advised Patient Condition: Good Hospital Course Patient is a 7-year-old female with history of uncontrolled diabetes who presents with cranial nerve III palsy secondary to diabetes. MRI brain and MRI of the orbits were negative and neurology consultation was obtained. Patient's diabetes was fairly uncontrolled and patient was started on NovoLog during hospitalization and advised on improved outpatient management. Patient was stable for DC, on day of discharge patient's vitals, labs of exam are stable patient has no acute complaints questions answered. Home Meds Active Scripts Insulin Glargine* (Lantus*) 100 Unit/Ml Soln, 25 UNIT SC QHS, #1 VIAL Prov:TIMI BURT 05/01/18 Insulin Aspart* (Novolog Insulin Pen*) 100 Unit/Ml Soln, 10 UNIT SC WITH MEALS, #1 VIAL Prov:TIMI BURT 05/01/18 Reported Medications Atorvastatin Calcium (Atorvastatin Calcium) 10 Mg Tablet, 10 MG PO QHS, #30 TAB 04/29/18 Pantoprazole* (Pantoprazole*) 20 Mg Tablet.dr, 20 MG PO AC BREAKFAST, TAB 04/29/18 Pregabalin* (Lyrica*) 150 Mg Capsule, 150 MG PO DAILY, CAP 04/29/18 Escitalopram Oxalate* (Escitalopram Oxalate*) 10 Mg Tablet, 10 MG PO DAILY, #30 TAB 04/29/18 Discontinued Reported Medications Insulin Aspart* (Novolog Insulin Pen*) 100 Unit/Ml Soln, 26 UNIT SC BID PRN for LOW GLUCOSE, EA 04/29/18 Pantoprazole* (Pantoprazole*) 40 Mg Tablet.dr, 40 MG PO AC BREAKFAST, TAB 04/29/18 Follow-up Plan FOLLOW UP WITH YOUR PCP IN 1-2 WEEKS Primary Care Provider Care Physician No Primary Time spent on discharge: > 30 minutes TIMI BURT May 01, 2018 10:47
[2018-05-01 11:33] VITALS: BP 168/73; PULSE 70; RESP 18
[2018-05-01 12:00] VITALS: PULSE 70
--- NOTE | 2018-05-01 12:23 | NUR ---
nurse note Upon giving discharge instructions to pt and pt daughter, they voiced their concern that the pt is from [facility] and that the pt has no medical insurance. Notified Dr. Durán regarding issue, social media marketing specialist cathy and community case manager paolo involved. The community case manager said we need a written prescription so the pt can go to [facility]. awaiting Dr. Durán's response BG is [phone], notified Dr. Durán, awaiting reply Family also has concerns with prescription refills because they won't be able to get another script till they go back to [facility] at the end of the month, notified
--- NOTE | 2018-05-01 12:26 | CONS ---
Assessment/Plan Assessment/Plan Hospital Course A: 77 yo F with hx of uncontrolled DM who p/w L upper lid ptosis, for which neurology is consulted. Clinically consistent w/ isolated ptosis...which is unlikely to have a neurologic basis.. MRI brain and orbits are reassuringly without acute pathology. P: Cont medical management and supportive care per primary Will sign off; please call w/ ?s Result Diagram: 04/30/18 0444 05/01/18 0452 Results 24hrs Laboratory Tests Test 04/30/18 17:26 04/30/18 21:26 05/01/18 02:24 05/01/18 04:52 Bedside Glucose 310 H 315 H 274 H Sodium Level 138 Potassium Level 4.5 Chloride Level 101 Carbon Dioxide Level 27 Anion Gap 10 Blood Urea Nitrogen 30 H Creatinine 2.05 H Est Glomerular Filtrat Rate mL/min Glucose Level 285 H Calcium Level 9.2 Test 05/01/18 08:04 05/01/18 11:58 Bedside Glucose 257 H 397 H Consultation Date/Type/Reason Admit Date/Time Apr 29, 2018 at 15:33 Type of Consult Neurology Reason for Consultation CN III palsy Requesting Provider: YULISA SOLARES MD Date/Time of Note DATE: 05/01/18 TIME: 12:26 24 HR Interval Summary Free Text/Dictation Continues telemetry monitoring. S/p MRI. Pt states that her L eyelid droop appears to be improving. Exam Vital Signs Vitals Vital Signs Date Temp Pulse Resp B/P (MAP) Pulse Ox O2 O2 Flow FiO2 Time Delivery Rate 05/01/18 98.0 70 18 168/73 97 Room Air 11:33 (104) Intake and Output 04/30/18 04/30/18 05/01/18 1515:00 23:00 07:00 IntakeIntake Total 980 ml 480 ml BalanceBalance 980 ml 480 ml Exam PE: Gen Appearance: No Apparent Distress HEENT: Normocephalic Cardiovascular: Regular rate Lungs: Clear bilaterally Abdomen: Soft Extremities: Dry NE: The patient was alert and oriented.. Language was normal. Fund of knowledge was normal. Pupils were equal and reactive to light. There was no afferent pupillary defect. Visual razo were normal. Funduscopic examination was limited Extra-ocular movements were full. L upper lid ptosis was present. There was no nystagmus. Facial sensation was normal. Face was symmetric with normal strength. Hearing was intact. Palate movements were normal. Neck strength was normal. There was normal tongue bulk and speed of movement. Tone was normal. Muscle bulk was normal. I did not see fasciculations. Arms and legs were strong to confrontation. Vibration sensation was normal. Temperature and pinprick sensation was normal. Rapid alternating movements were normal. There was no dysmetria. There was no intention tremor. Gait was deferred due to bedrest. Arm and leg reflexes were 2+ and symmetric. Foster's sign was absent. Plantar responses were flexor. MARIO BROWN NP May 01, 2018 12:26 SHELBY JUDGE May 02, 2018 06:33
--- NOTE | 2018-05-01 14:34 | NUR ---
Discharge pt is alert and orientedx3-4,room air, stable discharge instructions given to the pt and pt daughter both verbalized understanding of discharge instructions pt daughter understand [place]eng[place] prescriptions given to the pt and instructed to go to [facility] to get it filled hourly rounding done all belongings kept with the pt IV d/c tele box off
--- NOTE | 2018-05-03 19:45 | RADRPT ---
Echocardiogram Report Patient Name: LAKESHIA MILLER Gender: Female Date: 1940 Study Date: 30-Apr-2018 [employer]: Sj Dong [facility] Location: 6[address] Ref. Physician: YULISA SOLARES Quality: Adequate Procedures: Transthoracic echocardiogram with complete 2D, M-Mode, and doppler examination. 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 2D/M Mode Doppler Measurement Value Normal Ranges Measurement Value Normal Ranges LVIDd 2D 3.8 3.5 - 5.6 cm AV Peak Lazaro 1.9 m/sec LVIDs 2D 2.3 2.1 - 4.1 cm AV Peak PG 14.0 mmHg LVPWd 2D 1.0 0.6 - 1.1 cm LVOT Peak Lazaro 1.4 m/sec IVSd 2D 1.7 0.6 - 1.1 cm LVOT Peak PG 7.0 mmHg AoR Diam 2D 2.2 2.0 - 3.7 cm MV E Peak Lazaro 0.8 m/sec LA/Ao 2D 2 0 - 1 MV A Peak Lazaro 1.1 m/sec LA Dimen 2D 3.9 2.3 - 4.0 cm MV E/A 0.7 MV Decel Time 222 msec Lat E` Lazaro 0.1 m/sec Lateral E/E` 13.6 Med E` Lazaro 0.0 m/sec MV E/A 0.7 TR Peak Lazaro 2.3 m/sec TR Peak PG 21.0 mmHg RVSP 24.0 mmHg Findings Left Ventricle: Normal left ventricular systolic function. Normal left ventricular cavity size. Sigmoid septum. Ejection fraction is visually estimated at 65 %. Tissue Doppler/Mitral Doppler indices are consistent with impaired relaxation (Stage I diastolic dysfunction). Right Ventricle: Normal right ventricular size. Normal right ventricular systolic function. Left Atrium: The left atrium is normal in size. Right Atrium: The right atrium is normal in size. Mitral Valve: Mild mitral leaflet calcification. Mild mitral annular calcification. Trace mitral regurgitation. Aortic Valve: No significant aortic stenosis or insufficiency. Aortic cusps appear mildly calcified. Trace aortic valve regurgitation. Tricuspid Valve: Normal appearance of the tricuspid valve. Estimated peak PA systolic pressure 24 mmHg. There is trace tricuspid regurgitation. Pulmonic Valve: Pulmonic valve not well visualized. There is trace pulmonic regurgitation. Pericardium: Normal pericardium with no significant pericardial effusion. Aorta: Normal aortic root. IVC: Normal size and normal respiratory collapse consistent with normal right atrial pressure. Conclusions 1.The left ventricle is normal in size and systolic function. 2.Estimated left ventricular ejection fraction of 65%. 3.Grade 1 diastolic dysfunction. Electronically Signed By: Benny Celestin 03-May-2018 19:44:43 -0800 Patient Name: LAKESHIA MILLER Study Date: 30-Apr-2018 [id number]
== END 2018-05-01 14:41 | disposition home or self-care (01) | DRG 639 ==
LOC: E/R 13:02 → 6WM 15:33
PROVIDERS: ADMIT Internal Medicine; ATTEND Internal Medicine
DX: E11.65 Type 2 diabetes mellitus with hyperglycemia (principal); H49.00 Third [oculomotor] nerve palsy, unspecified eye; Z79.82 Long term (current) use of aspirin; Z79.4 Long term (current) use of insulin; E11.22 Type 2 diabetes mellitus with diabetic chronic kidney disease; N18.9 Chronic kidney disease, unspecified
CPT/HCPCS: 36415; 70450; 70543; 70553; 71045; 76775; 80048; 80053; 80061; 80307; 81001; 82728; 82803; 82962; 83036; 83540; 83735; 84100; 84155; 84300; 84484; 85025; 85610; 85730; 92610; 93005; 93306; J0360; J1650; J1815; J7030